=== PATIENT | male | born 1970 | race Caucasian/White ===

== ENCOUNTER 2017-10-11 16:00 | Emergency (ER) | payer MEDICAID ==
[~2017-10-11] VITALS: Ht 170.2 cm; Wt 80.0 kg
[2017-10-11] MEDS ORDERED: LORAZEPAM 2MG/ML CPJ IV STA (16:54)
[2017-10-11] MEDS ORDERED: ASPIRIN 325MG EC TABLET PO ONE (17:00)
[2017-10-11 17:42] LABS: BASOPHILS % 0.5 % (0.0-2.0); EOSINOPHILS % 0.1 % (0.0-5.0); HEMATOCRIT. 43.8 % (42.0-52.0); HEMOGLOBIN. 15.2 g/dL (14.0-18.0); LYMPHOCYTES % 16.8 % (20.0-50.0); MEAN CORPUSCULAR HEMOGLOBIN 32.5 pg (28.0-32.0); MEAN PLATELET VOLUME 7.7 fl (7.4-10.4); MONOCYTES % 8.7 % (2.0-8.0); NEUTROPHILS % 73.9 % (40.0-76.0); PLATELET 214 x1000/uL (130-400); RED BLOOD CELL COUNT 4.66 mill/uL (4.7-6.1); RED CELL DISTRIBUTION WIDTH 14.4 % (11.6-14.6)
[2017-10-11 18:00] LABS: CARBON DIOXIDE 28 mEq/L (21-32); CHLORIDE 94 mEq/L (98-107); ETHANOL BLOOD < 10 mg/dL; TROPONIN I < 0.02 ng/mL (0.00-0.04)
[2017-10-11 20:16] LABS: *AMPHETAMINES SCREEN URINE PRESUMTIVE POSITIVE (NEGATIVE); *BARBITURATES SCREEN URINE NEGATIVE (NEGATIVE); *BENZODIAZEPINES SCREEN URINE NEGATIVE (NEGATIVE); *COCAINE SCREEN URINE NEGATIVE (NEGATIVE); CANNABINOID URINE SCREEN NEGATIVE (NEGATIVE); METHADONE URINE SCREEN NEGATIVE (NEGATIVE); OPIATES URINE SCREEN NEGATIVE (NEGATIVE); PHENCYCLIDINE URINE SCREEN NEGATIVE (NEGATIVE)
[2017-10-11 20:55] VITALS: BP 128/75
== END 2017-10-11 21:15 | disposition home or self-care (01) ==
LOC: ER 16:05
DX: F15.129 Other stimulant abuse with intoxication, unspecified (principal); F10.10 Alcohol abuse, uncomplicated; F12.90 Cannabis use, unspecified, uncomplicated
CPT/HCPCS: 36415; 71010; 80053; 80305; 84484; 85025; 93005; 96374; 99285; G0482; J2060; Z7610

== ENCOUNTER 2024-09-19 13:05 | Emergency (ER) | payer MEDICAID, OTHER ==
[~2024-09-19] VITALS: Ht 172.7 cm; Wt 80.0 kg
[2024-09-19 13:07] VITALS: BP 113/76; PULSE 95; RESP 16; TEMP 98.4; O2SAT 100
[2024-09-19] MEDS: TETANUS, DIPHTHERIA, PERTUSSIS VAC/PF 0.5ML (>10YR OLD) IM ONE (16:28)
== END 2024-09-19 16:29 ==
LOC: ER 13:05
DX: S09.90XA Unspecified injury of head, initial encounter (principal); F12.10 Cannabis abuse, uncomplicated; X58.XXXA Exposure to other specified factors, initial encounter; Y93.89 Activity, other specified; Y92.89 Other specified places as the place of occurrence of the external cause; Y99.8 Other external cause status
CPT/HCPCS: 82962; 90471; 90715; 99284